=== PATIENT | male | born 1965 | race Caucasian/White ===

== ENCOUNTER → 2018-06-14 | Outpatient (CLI) | payer OTHER ==
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
== END ==
LOC: RADMRIMAIN 07:17
PROVIDERS: ATTEND Internal Medicine
DX: M48.061 Spinal stenosis, lumbar region without neurogenic claudication (principal); M99.74 Connective tissue and disc stenosis of intervertebral foramina of sacral region; M51.27 Other intervertebral disc displacement, lumbosacral region; M51.36 Other intervertebral disc degeneration, lumbar region; M47.817 Spondylosis without myelopathy or radiculopathy, lumbosacral region; M46.96 Unspecified inflammatory spondylopathy, lumbar region
CPT/HCPCS: 72148

== ENCOUNTER → 2018-09-26 | Outpatient (CLI) | payer OTHER ==
[2018-09-26 10:52] LABS: HCT 41.7 % (39.0-53.0); HGB 14.1 gm/dL (13.0-17.5); MCH 29.8 pg (25.0-35.0); MCHC 33.8 g/dL (31.0-37.0); MCV 88.3 fL (80.0-100.0); Mean Platelet Volume 8.9; Platelet Count 261 k/uL (150-450); RBC 4.72 m/uL (4.30-5.90); RDW 14.3 % (11.5-15.5); WBC 7.1 k/uL (3.8-10.6)
[2018-09-26 11:01] LABS: Partial Thromboplastin Time 23.5 sec (22.0-30.0); Prothrombin Time 10.5 sec (9.0-12.0)
[2018-09-26 11:07] LABS: ALT 29 U/L (21-72); AST 27 U/L (17-59); Albumin 4.2 g/dL (3.5-5.0); Alkaline Phosphatase 48 U/L (38-126); Anion Gap 6 mmol/L; Blood Urea Nitrogen 18 mg/dL (9-20); Calcium 9.7 mg/dL (8.4-10.2); Carbon Dioxide 31 mmol/L (22-30); Chloride 101 mmol/L (98-107); Glucose 97 mg/dL (74-99); Potassium 4.8 mmol/L (3.5-5.1); Sodium 138 mmol/L (137-145); Total Bilirubin 0.7 mg/dL (0.2-1.3)
[2018-09-26 11:18] LABS: Appearance,Urine Clear (Clear); Bilirubin,Urine Negative (Negative); Blood,Urine Negative (Negative); Color,Urine Dark Yellow; Glucose,Urine (UA) Negative (Negative); Ketones,Urine Trace (Negative); Leukocyte Esterase,Urine Negative (Negative); Nitrite,Urine Negative (Negative); PH, Urine 6.5 (5.0-8.0); Protein,Urine Negative (Negative); Specific Gravity,Urine 1.024 (1.001-1.035); Urobilinogen,Urine <2.0 mg/dL (<2.0)
== END | disposition home or self-care (01) ==
LOC: LABPAT 09:58
PROVIDERS: ATTEND Orthopaedic Surgery
DX: Z01.818 Encounter for other preprocedural examination (principal); Z01.812 Encounter for preprocedural laboratory examination
CPT/HCPCS: 36415; 80053; 81003; 85027; 85610; 85730; 87070; 93005

== ENCOUNTER 2018-10-07 05:43 | Inpatient (IN) | payer OTHER ==
[~2018-10-07 05:43] MED LIST: HYDROmorphone 0.5 MG/0.5 ML SYRINGE IVP PRN; MORPHINE SULFATE 4 MG/ML SYRINGE IV PRN
[2018-10-07] MEDS ORDERED: ACETAMINOPHEN TAB 500 MG TAB PO ONE (06:00)
[2018-10-07] MEDS ORDERED: ceFAZolin IN SWFI 2 GM/20 ML SYRINGE IVP ONE (06:00)
[2018-10-07] MEDS ORDERED: TRANEXAMIC ACID 1,000 MG in SODIUM CHLORIDE 0.9% 100 ML IVPB ONE ×4 (06:00)
[2018-10-07] MEDS ORDERED: MELOXICAM 7.5 MG TAB PO ONE (06:00)
[2018-10-07] MEDS: LACTATED RINGERS 1,000 ML IV SCH ×2 (06:22→21:34)
[2018-10-07] MEDS ORDERED: ONDANSETRON 4 MG/2 ML VIAL IVP ONE (06:25)
[2018-10-07] MEDS ORDERED: DEXAMETHASONE SOD PHOSPHATE 10 MG/ML 1 ML VIAL IV ONE (06:26)
[2018-10-07] MEDS ORDERED: KETAMINE 10 MG/ML 20 ML VIAL ONE (06:56)
[2018-10-07] MEDS ORDERED: LACTATED RINGERS 1,000 ML BAG IV ONE (06:56)
[2018-10-07] MEDS ORDERED: LIDOCAINE 1% INJ 10MG/ML (20 ML MDV) ONE (06:56)
[2018-10-07] MEDS ORDERED: MIDAZOLAM 2 MG/2 ML VIAL ONE (06:56)
[2018-10-07] MEDS ORDERED: fentaNYL (PF) 50 MCG/ML 2 ML AMP ONE (06:56)
[2018-10-07] MEDS ORDERED: PHENYLEPHRINE-0.9% NACL SYG 1 MG/10 ML SYRINGE ONE (06:56)
[2018-10-07] MEDS ORDERED: HEPARIN SODIUM,PORCINE 10,000 UNIT/ML 1 ML VIAL ONE (06:56)
[2018-10-07] MEDS ORDERED: PROPOFOL 10 MG/ML 20 ML VIAL IV ONE (06:56)
[2018-10-07] MEDS ORDERED: ONDANSETRON 4 MG/2 ML VIAL IVP PRN (06:57)
[2018-10-07] MEDS ORDERED: HYDROcodone/APAP 5-325MG 1 EACH TAB PO PRN (06:57)
[2018-10-07] MEDS ORDERED: HYDROmorphone 0.5 MG/0.5 ML SYRINGE IVP PRN ×2 (06:57)
[2018-10-07] MEDS ORDERED: MAGNESIUM HYDROXIDE 2,400 MG/10 ML CUP PO PRN (06:57)
[2018-10-07] MEDS ORDERED: DIAZEPAM 5 MG TAB PO PRN (06:57)
[2018-10-07] MEDS ORDERED: hydrOXYzine PAMOATE 25 MG CAP PO PRN (06:57)
[2018-10-07] MEDS ORDERED: NALOXONE 0.4 MG/ML 1 ML VIAL IV PRN (06:57)
[2018-10-07] MEDS ORDERED: ROPIVACAINE 246.25 MG, EPINEPHrine 0.5 MG, KETOROLAC 30 MG, cloNIDine HCL/PF 80 MCG, WA... MISCELLANE ONE ×5 (07:00)
[2018-10-07] MEDS ORDERED: ceFAZolin 3,000 MG in SODIUM CHLORIDE 0.9% IRRIGATIO 3,000 ML IRRIGATION ONE (07:01)
[2018-10-07] MEDS ORDERED: LACTATED RINGERS 1,000 ML IV ONE (07:41)
--- NOTE | 2018-10-07 08:55 | FL ---
EXAMINATION TYPE: FL guidance operating room, XR Hip Limited LT DATE OF EXAM: 10/07/2018 CLINICAL HISTORY: Left hip pain TECHNIQUE: Fluoroscopy. COMPARISON: None. FINDINGS: Fluoroscopic guidance was provided during procedure performed by Dr. Peace. A total of 1 minute and 7 seconds of fluoroscopic time was utilized during the procedure and 2 spot images was acquired during left hip replacement. IMPRESSION: As Above.
--- NOTE | 2018-10-07 09:02 | P.OP ---
Date of Procedure: 10/07/18 Preoperative Diagnosis: Severe osteoarthritis left hip Postoperative Diagnosis: Severe osteoarthritis left hip Procedure(s) Performed: Left total hip arthroplasty with a direct anterior approach Implants: Palomino [employer] nephew Polarstem size 8 standard [employer]omino [employer]hew R3, 3 hole acetabular shell, 58 mm [employer]hew reflection 6.5 mm cancellus screw, 25 mm 2 [employer]hew R3, XLPE 20 acetabular liner [employer]om[employer]hew Oxinium femoral head 36 m, +8 All components were press-fit. The articulation is Oxinium on polyethylene. Anesthesia: spinal Surgeon: Yung Peace Insulation Board Back Tender #1: Jeanna Mendez Estimated Blood Loss (ml): 300 (120 mL returned with Cell Saver) Pathology: other (Femoral head) Condition: stable Disposition: PACU Indications for Procedure: After failure of conservative treatment we discussed the surgical and nonsurgical treatment options at length. Patient wishes to proceed with a total hip arthroplasty with a direct anterior approach. Complications specific to this procedure were discussed at length, including but not limited to infection, leg length discrepancy, dislocation, and nerve injury. Patient is aware of all these complications and informed consent was obtained Operative Findings: The operative findings are consistent with severe osteoarthritis of the left hip Description of Procedure: Patient was seen and evaluated in the preoperative area, consent was reviewed, and the surgical site was marked with a skin marker. Patient was then brought to the operating room and given prophylactic antibiotics intravenously. 1 g of Tranexamic acid was also given. A spinal anesthetic was administered by the anesthesia department. The patient was then placed on the Hustle table with the bony prominences well-padded. The hip area was then prepped and draped in usual sterile fashion. A universal timeout was then performed, which confirmed the patient's name, surgical site, ALLERGIES, and procedure being performed. Next the incision site was located at 1 cm distal and 1 cm lateral to the anterior superior iliac spine. The skin and subcutaneous tissues were sharply incised. Incision was carefully dissected down to the fascia overlying the tensor fascia belle muscle. This fascia was then incised in line with the incision. Next, using blunt finger dissection, the tensor fascia belle muscle was dissected off its investing fascia. The muscle was then carefully retracted laterally with a cobra retractor over the lateral neck of the femur. Next, the circumflex vessels were identified and cauterized using the AquaMantis device. The anterior hip capsule was then exposed. The capsule was then opened and an inverted T fashion. Cobra retractors were then placed intracapsularly. The proximal femur was then vis ualized. The femoral neck was then osteotomized appropriate level above the lesser trochanter. Small amount of traction was placed with the Hustle table. A small wedge of bone was then removed from the remaining femoral head. Next, using a corkscrew femoral head was easily removed from the acetabulum. On gross visual inspection, the femoral head had complete loss of articular cartilage in multi ple periarticular osteophytes. Attention was then turned to the acetabulum. the acetabulum was exposed and any remaining labrum was excised. Sequential reaming of the acetabulum was performed using fluoroscopic guidance. When the appropriate size was reached, a trial was then placed. The position and fit of the trial was checked with fluoroscopy. The trial was then removed. Then, using fluoroscopic guidance, the final implant was impacted at 20 of anteversion and 40 of abduction, and fully seated in the acetabulum. 2 screws were then placed in the acetabulum. Again fluoroscopy was used to check position of the screws. Next, the liner was then impacted, with a 20 elevated liner located in the anterior superior quadrant. Component locking was confirmed. Attention was then directed to the femur. With the aid of the Hustle table, the femur was externally rotated to approximately 130, extended, and abducted under the opposite leg. A side hook was then placed under the proximal femur, and the side hook elevator was used to elevate the proximal femur. Retractors were then placed. A capsular release was performed, as well as a release of the conjoined tendon, which afforded excellent visualization of the proximal femur. Next, a box osteotome was used to lateralize the proximal femur. A wood milling machine hand was then used to locate the femoral canal. Sequential broaching was then performed with appropriate size which afforded excellent fixation in the proximal femur. A trial was then placed with appropriate head and neck, and the hip was gently reduced with the aid of the Hustle table. Fluoroscopy was then used to check position of the components, as well as to ensure equal leg lengths. The hip was then gently dislocated and the trials were then removed. Final implants were then impacted and the hip was again reduced. Final fluoroscopic x-rays confirmed that the components were in anatomic position, as well as equal leg lengths. The hip was also taken through range of motion, and found to be stable. The hip was then copiously irrigated with antibiotic solution with pulsatile lavage. The hip was then irrigated with Irrisept solution. The soft tissues were then injected with a ropivacaine solution, which consisted of 246.25 mg of ropivacaine, 0.5 mg of epinephrine, 30 mg of Toradol, 80 g of clonidine, and 48.45 mL of sterile water, for a total of 100 mL of fluid injected. A second dose of 1 g of Tranexamic acid was also given. the fascia was then closed with 2-0 strata fix suture. The subcutaneous tissue was closed with 3-0 Vicryl. The subcuticular tissue was closed with 3-0 strata fix suture. The skin was then closed with Dermabond glue and a sterile silver dressing. The patient was then transferred to the recovery room in stable condi tion. The embalmer assistant ALLAN Cabello was required due to the complexity of surgery, and the need for skilled surgical garment assembler for positioning, draping, exposure, retraction, and closure of the wound.
--- NOTE | 2018-10-07 09:36 | XR ---
EXAMINATION TYPE: XR Hip Limited LT DATE OF EXAM: 10/07/2018 CLINICAL HISTORY: Left hip pain and osteoarthritis. TECHNIQUE: Single AP portable view of left hip is obtained immediately postoperatively. COMPARISON: None. FINDINGS: Metallic hardware from left hip arthroplasty is seen and appears satisfactory in alignment and position. There is evidence of recent surgery with subcutaneous gas noted laterally as well as s oft tissue swelling. IMPRESSION: Metallic hardware from left hip arthroplasty is satisfactory in position.
[2018-10-07 10:08] VITALS: BMI 28.8
[2018-10-07] MEDS: ASPIRIN 325 MG TAB PO SCH ×2 (10:18→21:33)
[2018-10-07] MEDS: MELOXICAM 7.5 MG TAB PO SCH (10:18)
--- NOTE | 2018-10-07 11:51 | P.CONS ---
History of Present Illness - History of Present Illness This is a pleasant 52 years old male with past medical history of hypertension, osteoarthritis. Presents for elective left total hip arthroplasty for failed outpatient therapy. Patient already had the surgery with epidural anesthesia, is fully awake and oriented, denies chest pain or dyspnea or abdominal pain. Hasn't eaten yet. Patient felt some numbness in his feet which is resolved on the right side and still present on the left foot. No weakness. wound site with dressing in place with no surrounding erythema or swelling Vitals stable, labs done a few days ago on 09/26/2018 are reviewed which show an unremarkable CBC, BMP, liver enzymes, and urinalysis Review of Systems CONSTITUTIONAL: No fever, no malaise, no fatigue. HEENT: No recent visual problems or hearing problems. Denied any sore throat. CARDIOVASCULAR: No orthopnea, PND, no palpitations, no syncope. PULMONARY: No shortness of breath, no cough, no hemoptysis. GASTROINTESTINAL: No diarrhea, no nausea, no vomiting, no abdominal pain. Normoactive bowel sounds. NEUROLOGICAL: No headaches, no weakness, no numbness. HEMATOLOGICAL: Denies any bleeding or petechiae. GENITOURINARY: Denies any burning micturition, frequency, or urgency. MUSCULOSKELETAL/RHEUMATOLOGICAL: Denies any joint pain, swelling, or any muscle pain. ENDOCRINE: Denies any polyuria or polydipsia. Past Medical History Past Medical History: Hypertension, Osteoarthritis (OA) Additional Past Medical History / Comment(s): arthritis in hips and back, bone spurs and bulging disks History of Any Multi-Drug Resistant Organisms: None Reported Past Surgical History: Appendectomy, Joint Replacement, Orthopedic Surgery, Tonsillectomy Additional Past Surgical History / Comment(s): arthroscopic donaldo knees, reconstruction rt ankle from injury, donaldo cataracts, TLHA 09/2018 Past Anesthesia/Blood Transfusion Reactions: No Reported Reaction Past Psychological History: No Psychological Hx Reported Smoking Status: Never smoker Past Alcohol Use History: Daily Past Drug Use History: None Reported - Past Family History Mother Family Medical History: No Reported History Medications and Allergies Home Medications Medication Instructions Recorded Confirmed Type Diclofenac Sodium [Voltaren] 75 mg PO BID PRN 09/26/18 10/07/18 History Fluticasone Nasal [place] [Flonase 1 spray EA NOSTRIL DAILY PRN 09/26/18 10/07/18 History Nasal [place]] Lisinopril-Hctz 20-25 mg 1 tab PO DAILY 09/26/18 10/07/18 History [Zestoretic 20-25] Multivitamins, Thera [Multivitamin 1 tab PO DAILY 09/26/18 10/07/18 History (formulary)] [place]-3 Fatty Acids/Fish Oil [Fish 1 cap PO DAILY 09/26/18 10/07/18 History Oil 1,000 mg Softgel] Vit C/E/Zn/Coppr/Lutein/Zeaxan 1 cap PO DAILY 09/26/18 10/07/18 History [Preservision Areds 2 Softgel] Allergies Allergy/AdvReac Type Severity Reaction Status Date / Time Penicillins Allergy Unknown Verified 10/07/18 10:33 Childhood Physical Exam Vitals: Vital Signs Temp Pulse Pulse Resp BP BP Pulse Ox 10/07/18 10:25 97.8 F 75 16 107/70 100 10/07/18 10:15 98.9 F 72 20 141/80 100 10/07/18 09:45 71 16 131/61 100 10/07/18 09:30 68 16 117/63 100 10/07/18 09:15 67 16 106/59 99 10/07/18 09:07 97.5 F L 74 12 109/53 99 10/07/18 06:12 97.3 F L 91 16 136/77 97 Intake and Output 10/06/18 10/07/18 10/07/18 22:59 06:59 14:59 Intake Total 100 4650 Output Total 300 Balance 100 4350 Intake: IV 100 4650 Output: Estimated Blood Loss 300 Other: Weight 101.6 kg GENERAL: The patient is alert and oriented x3, not in any acute distress. Well developed, well nourished. HEENT: Pupils are round and equally reacting to light. EOMI. No scleral icterus. No conjunctival pallor. Normocephalic, atraumatic. No pharyngeal erythema. No thyromegaly. CARDIOVASCULAR: S1 and S2 present. No murmurs, rubs, or gallops. PULMONARY: Chest is clear to auscultation, no wheezing or crackles. ABDOMEN: Soft, nontender, nondistended, normoactive bowel sounds. No palpable organomegaly. -MUSCULOSKELETAL: No joint swelling or deformity. Left hip wound, dressing is in place. Clean and closed. Further examination is deferred to the primary team EXTREMITIES: No cyanosis, clubbing, or pedal edema. NEUROLOGICAL: Gross neurological examination did not reveal any focal deficits. SKIN: No rashes. Assessment and Plan Assessment: Osteoarthritis, status post left total hip arthroplasty Essential hypertension Chronic low back pain, not an active issue Plan: This is a pleasant 52 years old male who presents for left total hip arthroplasty. Pain was controlled. DVT prophylaxis and pain management as per primary team. Labs and medication were reviewed.. Continue same treatment. Continue with symptomatic treatment. Resume home medication. Monitor lytes and vitals. DVT and GI prophylaxis. Further recommendations of the clinical course of the patient Thank you for consulting us, please feel free to contact us for any further question or clarification
[2018-10-07] MEDS: SODIUM CHLORIDE 0.9% 1,000 ML IV SCH ×2 (12:07→21:34)
[2018-10-07] MEDS: HYDROcodone/APAP 5-325MG 1 EACH TAB PO PRN ×2 (12:11→18:20)
[2018-10-07] MEDS: ceFAZolin IN SWFI 2 GM/20 ML SYRINGE IVP SCH ×2 (15:26→23:43)
[2018-10-07] MEDS: HYDROmorphone 1 MG/ML 1 ML SYRINGE IVP PRN (21:34)
[2018-10-07] MEDS: SENNOSIDES-DOCUSATE SODIUM 1 EACH TAB PO SCH (21:34)
[2018-10-08] MEDS: HYDROcodone/APAP 5-325MG 1 EACH TAB PO PRN ×3 (00:25→12:26)
[2018-10-08] MEDS: HYDROmorphone 1 MG/ML 1 ML SYRINGE IVP PRN ×2 (04:57→09:29)
[2018-10-08] MEDS: ASPIRIN 325 MG TAB PO SCH (07:26)
[2018-10-08] MEDS: MELOXICAM 7.5 MG TAB PO SCH (07:26)
[2018-10-08 07:57] LABS: Basophils % (A) 0 %; Eosinophils # (A) 0.1 k/uL (0-0.7); Eosinophils % (A) 1 %; HCT 33.9 % (39.0-53.0); HGB 11.2 gm/dL (13.0-17.5); Lymphocytes # (A) 1.8 k/uL (1.0-4.8); Lymphocytes % (A) 17 %; MCH 30.5 pg (25.0-35.0); MCHC 33.1 g/dL (31.0-37.0); MCV 92.2 fL (80.0-100.0); Mean Platelet Volume 6.5; Monocytes # (A) 0.7 k/uL (0-1.0); Monocytes % (A) 7 %; Neutrophils # (A) 7.6 k/uL (1.3-7.7); Neutrophils % (A) 73 %; Platelet Count 218 k/uL (150-450); RBC 3.68 m/uL (4.30-5.90); RDW 12.6 % (11.5-15.5); WBC 10.4 k/uL (3.8-10.6)
--- NOTE | 2018-10-08 08:37 | P.DS ---
Providers Date of admission: 10/07/18 05:43 Expected date of discharge: 10/08/18 Attending physician: Yung Peace Consults: 10/07/18 06:57 Consult Physician Routine Consulting Provider: Beka Lamas Consult Reason/Comments: medical management Do you want consulting provider notified?: Already Contacted Primary care physician: Norma Mcclainbal - Discharge Diagnosis(es) (1) Osteoarthritis of left hip Current Visit: Yes Status: Acute (2) Status post total hip replacement, left Current Visit: Yes Status: Acute Hospital Course: This is a 52-year-old male with known history of degenerative arthritis of the left hip. The patient presents for evaluation. After discussion and consideration patient elects to proceed with total hip arthroplasty. The patient is seen preoperatively by Dr. Peace and medically cleared for surgery by their primary care physician. Patient is admitted to [facility] on 10/07/2018 for total hip arthroplasty. The procedures performed without complication or sequelae. The patient is doing well postoperatively. Labs and vital signs are stable on day of discharge. On day of discharge patient's hip incision is healing well. There is minimal erythema. There is no drainage noted at this time. There is minimal soft tissue swelling to the hip and thigh. Patient has full foot and ankle motion without difficulty or pain. Calf is soft and nontender to palpation. Neurovascular status to the left lower extremity is intact. Patient is discharged home in good condition. Opioid start talking form is reviewed and signed at patient bedside. Please see med rec for accurate list of home medications. Plan - Discharge Summary Discharge Rx Participant: No New Discharge Prescriptions: New Aspirin 325 mg PO BID #60 tab HYDROcodone/APAP 5-325MG [[place] 5-325] 1 - 2 tab PO Q6HR PRN #56 tab PRN Reason: Pain Sennosides [Senokot] 1 tab PO BID #60 tablet No Action Lisinopril-Hctz 20-25 mg [Zestoretic 20-25] 2 tab PO DAILY Diclofenac Sodium [Voltaren] 75 mg PO BID PRN PRN Reason: Pain Multivitamins, Thera [Multivitamin (formulary)] 1 tab PO DAILY Fluticasone Nasal [place] [Flonase Nasal [place]] 1 spray EA NOSTRIL DAILY PRN PRN Reason: Allergy Symptoms [place]-3 Fatty Acids/Fish Oil [Fish Oil 1,000 mg Softgel] 1 cap PO DAILY Vit C/E/Zn/Coppr/Lutein/Zeaxan [Preservision Areds 2 Softgel] 1 cap PO DAILY Discharge Medication List Diclofenac Sodium [Voltaren] 75 mg PO BID PRN 09/26/18 [History] Fluticasone Nasal [place] [Flonase Nasal [place]] 1 spray EA NOSTRIL DAILY PRN 09/26/18 [History] Lisinopril-Hctz 20-25 mg [Zestoretic 20-25] 2 tab PO DAILY 09/26/18 [History] Multivitamins, Thera [Multivitamin (formulary)] 1 tab PO DAILY 09/26/18 [History] [place]-3 Fatty Acids/Fish Oil [Fish Oil 1,000 mg Softgel] 1 cap PO DAILY 09/26/18 [History] Vit C/E/Zn/Coppr/Lutein/Zeaxan [Preservision Areds 2 Softgel] 1 cap PO DAILY 09/26/18 [History] Aspirin 325 mg PO BID #60 tab 10/08/18 [Rx] HYDROcodone/APAP 5-325MG [[place] 5-325] 1 - 2 tab PO Q6HR PRN #56 tab 10/08/18 [Rx] Sennosides [Senokot] 1 tab PO BID #60 tablet 10/08/18 [Rx] Follow up Appointment(s)/Referral(s): Yung Peace DO [Doctor of Osteopathic Medicine] - 2 Weeks Activity/Diet/Wound Care/Special Instructions: Weightbearing as tolerated with walker. Leave dressing intact. Dressing may be removed by home care nurse or by patient in 10 days. May shower with dressing on. Please follow-up with [facility] in 2 weeks and call with any questions or concerns, . Discharge Disposition: HOME WITH HOME HEALTH SERVICES
[2018-10-08 08:55] VITALS: BP 127/66; PULSE 75; RESP 12; TEMP 97.7
[2018-10-08] MEDS ORDERED: LISINOPRIL-HCTZ 20-25 MG 1 EACH TAB PO SCH (09:00)
[2018-10-08] MEDS: SODIUM CHLORIDE 0.9% 1,000 ML IV SCH (12:19)
[2018-10-08] MEDS: SENNOSIDES-DOCUSATE SODIUM 1 EACH TAB PO SCH (12:26)
--- NOTE | 2018-10-08 12:59 | P.PN ---
Subjective Patient is seen as a follow-up for medical management. At this time the patient denying any chest pain, racing heart, no cough, no shortness breath, no abdominal pain, nausea and vomiting, or diarrhea. He says that he is constipated but is passing gases. He is also walking. Objective - Vital Signs Vital signs: Vital Signs Temp 97.7 F 10/08/18 07:00 Pulse 75 10/08/18 07:00 Resp 12 10/08/18 07:00 BP 127/66 10/08/18 07:00 Pulse Ox 98 10/08/18 07:00 Intake & Output 10/07/18 10/08/18 10/08/18 18:59 06:59 18:59 Intake Total 5060 1120 Output Total 300 Balance 4760 1120 Intake: IV 4860 Sodium Chloride 0.9% 1, 210 000 ml @ 70 mls/hr IV . [id number] GOYO Rx#:[id number] Intake, IV Titration 1120 Amount Sodium Chloride 0.9% 1, 1120 000 ml @ 70 mls/hr IV . [id number] GOYO Rx#:[id number] Oral 200 Output: Estimated Blood Loss 300 Other: # Voids 1 1 2 - Exam On exam, alert and oriented x3. HEENT: Conjunctivae normal. eyes normal. NECK: No JVD. No thyroid enlargement. No LNs CARDIOVASCULAR: S1, S2 muffled. No murmur RESPIRATION: Breath sounds diminished in the bases. No rhonchi or crackles. No bronchial breathing. ABDOMEN: Soft, nontender . No guarding. no masses palpable. No ascites, No hepatosplenomegaly.Bowel sounds heard. LEGS: No edema. no swelling dressing applied to the left hip status post surgery looks clean no signs of infection as of now NERVOUS SYSTEM: Cranial N 2-12 grossly normal. Moves all 4 limbs. No focal deficits. No sensory deficit. No signs of cerebellar dysfucntion. Skin: no ulcer no rash Joints: No active swelling. No inflammation. Lymphatic system. No LN neck axilla or groin. - Labs CBC & Chem 7: 10/08/18 07:18 Labs: Abnormal Lab Results - Last 24 Hours (Table) 10/08/18 Range/Units 07:18 RBC 3.68 L (4.30-5.90) m/uL Hgb 11.2 L (13.0-17.5) gm/dL Hct 33.9 L (39.0-53.0) % Assessment and Plan Assessment: - Osteoarthritis of the left temporal status post left total hip replacement - Hypertension - Chronic low back pain Plan - Patient is doing okay from medical standpoint - Pain management as per orthopedic surgery - Continue rest of the care - DVT prophylaxis as per orthopedic surgery - We'll continue to follow the patient - Patient is stable to be discharged whenever deemed appropriate by orthopedic surgery Time with Patient: Greater than 30
[2018-10-09] MEDS ORDERED: LISINOPRIL-HCTZ 20-25 MG 1 EACH TAB PO SCH (09:00)
== END 2018-10-08 13:37 | disposition home health service (06) | DRG 470 ==
LOC: 2ORMAIN 05:43 → 4SSUR 09:09
PROVIDERS: ADMIT Orthopaedic Surgery; ATTEND Orthopaedic Surgery
PROC: 0SRB06A Replacement of Left Hip Joint with Oxidized Zirconium on Polyethylene Synthetic Substitute, Uncemented, Open Approach (ICD-10-PCS; principal; 2018-10-07 07:00)
DX: M16.12 Unilateral primary osteoarthritis, left hip (principal); I10 Essential (primary) hypertension; M77.9 Enthesopathy, unspecified; K59.00 Constipation, unspecified; Z79.899 Other long term (current) drug therapy; Z98.42 Cataract extraction status, left eye; Z98.41 Cataract extraction status, right eye; Z96.653 Presence of artificial knee joint, bilateral; Z90.49 Acquired absence of other specified parts of digestive tract; Z88.0 Allergy status to penicillin
CPT/HCPCS: 73501; 85025; 86850; 86891; 86900; 86901; 88300

== ENCOUNTER 2019-06-28 12:08 | Emergency (ER) | payer OTHER ==
[2019-06-28] MEDS ORDERED: KETOROLAC 60 MG/2 ML VIAL IM STA (12:38)
--- NOTE | 2019-06-28 12:52 | ED ---
General Adult HPI - General Chief complaint: Back Pain/Injury Stated complaint: Back pain Time Seen by Provider: 06/28/19 12:15 Source: patient, RN notes reviewed, old records reviewed Mode of arrival: ambulatory Limitations: no limitations - History of Present Illness Initial comments: This is a 53-year-old male who presents emergency Department complaining of left-sided back pain it radiates down the back of his leg all the down to his heel. Patient states he had similar pain in the past. Patient states he hasn't had a couple of years. Patient states few months ago he fell and broke some ribs and it was after that that he started having some lower back pain. Patient states it is gotten considerably worse over the last couple of days. Patient denies any area of numbness or weakness. Patient denies any difficulty urinating or urinary incontinence. Patient states sitting makes the pain worse and lying down seems to improve the pain if he has his legs up. - Related Data Home Medications Medication Instructions Recorded Confirmed Diclofenac Sodium [Voltaren] 75 mg PO BID PRN 09/26/18 10/07/18 Fluticasone Nasal [place] [Flonase 1 spray EA NOSTRIL DAILY PRN 09/26/18 10/07/18 Nasal [place]] Lisinopril-Hctz 20-25 mg 2 tab PO DAILY 09/26/18 10/08/18 [Zestoretic 20-25] Multivitamins, Thera [Multivitamin 1 tab PO DAILY 09/26/18 10/07/18 (formulary)] [place]-3 Fatty Acids/Fish Oil [Fish 1 cap PO DAILY 09/26/18 10/07/18 Oil 1,000 mg Softgel] Vit C/E/Zn/Coppr/Lutein/Zeaxan 1 cap PO DAILY 09/26/18 10/07/18 [Preservision Areds 2 Softgel] Previous Rx's Medication Instructions Recorded Aspirin 325 mg PO BID #60 tab 10/08/18 HYDROcodone/APAP 5-325MG [[place] 1 - 2 tab PO Q6HR PRN #56 tab 10/08/18 5-325] Sennosides [Senokot] 1 tab PO BID #60 tablet 10/08/18 predniSONE 40 mg PO DAILY #8 tab 06/28/19 Allergies Allergy/AdvReac Type Severity Reaction Status Date / Time Penicillins Allergy Unknown Verified 06/28/19 12:18 Childhood Review of Systems ROS Statement: Those systems with pertinent positive or pertinent negative responses have been documented in the HPI. ROS Other: All systems not noted in ROS Statement are negative. Past Medical History Past Medical History: Hypertension, Osteoarthritis (OA) Additional Past Medical History / Comment(s): arthritis in hips and back, bone spurs and bulging disks History of Any Multi-Drug Resistant Organisms: None Reported Past Surgical History: Appendectomy, Joint Replacement, Orthopedic Surgery, Tonsillectomy Additional Past Surgical History / Comment(s): arthroscopic donaldo knees, reconstruction rt ankle from injury, donaldo cataracts, TLHA 09/2018 Past Anesthesia/Blood Transfusion Reactions: No Reported Reaction Past Psychological History: No Psychological Hx Reported Smoking Status: Never smoker Past Alcohol Use History: Daily Past Drug Use History: None Reported - Past Family History Mother Family Medical History: No Reported History General Exam - General Exam Comments Initial Comments: GENERAL: Patient is well-developed and well-nourished. Patient is nontoxic and well- hydrated and is in mild distress. ENT: Neck is soft and supple. No significant lymphadenopathy is noted. Oropharynx is clear. Moist mucous membranes. Neck has full range of motion without eliciting any pain. EYES: The sclera were anicteric and conjunctiva were pink and moist. Extraocular movements were intact and pupils were equal round and reactive to light. Eyelids were unremarkable. SKIN: Skin is clear with no lesions or rashes and otherwise unremarkable. NEUROLOGIC: Patient is alert and oriented x3. Cranial nerves II through XII are grossly intact. Motor and sensory are also intact. Normal speech, volume and content. Symmetrical smile. Patient had increased pain when he was lying flat. Patient had negative straight-leg of the right leg but positive on the left at 45 MUSCULOSKELETAL: Normal extremities with adequate strength and full range of motion. No lower extremity swelling or edema. No calf tenderness. LYMPHATICS: No significant lymphadenopathy is noted PSYCHIATRIC: Normal psychiatric evaluation. Limitations: no limitations Course Vital Signs 06/28/19 06/28/19 12:16 13:46 Temperature 97.8 F 97 F L Pulse Rate 104 H 86 Respiratory 18 20 Rate Blood Pressure 161/90 158/78 O2 Sat by Pulse 97 99 Oximetry Medical Decision Making - Medical Decision Making Lumbar spine shows no acute abnormality. Patient received Toradol emergency department was feeling better on reexamination. Disposition Clinical Impression: Sciatica Disposition: HOME SELF-CARE Instructions (If sedation given, give patient instructions): Sciatica (ED) Prescriptions: predniSONE 40 mg PO DAILY #8 tab Is patient prescribed a controlled substance at d/c from ED?: No Referrals: Марина Green MD [Primary Care Provider] - 1-2 days Time of Disposition: 13:29
--- NOTE | 2019-06-28 13:09 | XR ---
EXAMINATION TYPE: XR lumbosacral spine min 4V DATE OF EXAM: 06/28/2019 COMPARISON: NONE HISTORY: 53-year-old male trauma, left lower back pain. TECHNIQUE: 5 views FINDINGS: 1.3 cm stone right side of the abdomen. Undulating mild curvature of the lumbar spine. No pars intera rticularis defect. Moderate degenerative disc disease L4-L5 and L5-S1 with disc height loss and endpl ate spondylosis. Mild to moderate degenerative disc disease throughout the remainder of the lumbar sp ine with mild disc height loss and spondylosis. Hypertrophic facet arthropathy mid to lower lumbar sp ine. There is trace grade 1 retrolisthesis at L3-L4. Vertebral body heights are preserved. IMPRESSION: 1. Moderate degenerative disc disease L4-L5 and L5-S1. Mild to moderate throughout the remainder of t he lumbar spine. 2. Hypertrophic facet arthropathy with trace grade 1 retrolisthesis at L3-L4. 3. No vertebral compression collapse. 4. A 1.3 cm stone in the right side of the abdomen could be a renal calculus or gallstone.
[2019-06-28 13:46] VITALS: BP 158/78; PULSE 86; RESP 20; TEMP 97
== END 2019-06-28 13:46 | disposition home or self-care (01) ==
LOC: EC 12:08
DX: M54.42 Lumbago with sciatica, left side (principal); Z88.0 Allergy status to penicillin; I10 Essential (primary) hypertension; M16.0 Bilateral primary osteoarthritis of hip; M47.9 Spondylosis, unspecified; Z79.1 Long term (current) use of non-steroidal anti-inflammatories (NSAID); Z79.899 Other long term (current) drug therapy; Z96.642 Presence of left artificial hip joint; Z87.81 Personal history of (healed) traumatic fracture; Z91.81 History of falling
CPT/HCPCS: 72110; 99284; 96372; J1885

== ENCOUNTER → 2019-07-10 | Outpatient (CLI) | payer OTHER ==
--- NOTE | 2019-07-10 09:14 | US ---
EXAMINATION TYPE: US abdomen complete DATE OF EXAM: 07/10/2019 COMPARISON: X-ray dated 06/28/2019 CLINICAL HISTORY: R10.11 Abd pain. RUQ pain, 1.3cm stone visualized on recent x-ray noted as possible renal calculus or gallstone EXAM MEASUREMENTS: Liver Length: 16.2 cm Gallbladder Wall: 0.3 cm CBD: 0.3 cm Spleen: 9.6 cm Right Kidney: 11.7 x 5.9 x 5.0 cm Left Kidney: 12.4 x 6.1 x 5.2 cm Technical limitations due to large amount of overlying bowel content Pancreas: Obscured by bowel gas Liver: only seen intercostally, visualized portions appear wnl Gallbladder: no evidence of stones as visualized Evidence for sonographic Weems's sign: no CBD: appears wnl Spleen: appears wnl Right Kidney: no evidence of hydronephrosis Left Kidney: no evidence of hydronephrosis Upper IVC: wnl Abd Aorta: wnl The liver is homogenous. The intrahepatic portion of the IVC and proximal abdominal aorta are within normal limits. There is no evidence of cholelithiasis. Common bile duct is unremarkable. The visu alized portions of the pancreas are homogenous. The spleen is unremarkable. Kidneys are symmetric a nd free of hydronephrosis. No renal lesions are seen. IMPRESSION: 1. No sonographic evidence of cholelithiasis nor acute cholecystitis. Obscuration of the pancreas by overlying bowel gas and suboptimal visualization of the liver. 2. The 1.3 cm calculus seen on the x-ray 06/28/2019 is neither seen within the gallbladder or right kid venkat. This may have been within bowel on the prior exam or could relate to a calcified mesenteric stru cture such as a lymph node. Repeat x-ray could evaluate for persistence. If present on the subsequent x-ray CT could be performed of the abdomen for further anatomic delineation.
== END | disposition home or self-care (01) ==
LOC: RADUSWWP 07:44
PROVIDERS: ATTEND Internal Medicine
DX: R10.11 Right upper quadrant pain (principal); Z88.0 Allergy status to penicillin
CPT/HCPCS: 76700

== ENCOUNTER 2019-08-05 16:24 | Emergency (ER) | payer OTHER ==
[2019-08-05 16:33] VITALS: BP 168/92; PULSE 94; RESP 16; TEMP 97.8
[2019-08-05] MEDS ORDERED: HYDROmorphone 1 MG/ML 1 ML SYRINGE IM STA (17:14)
[2019-08-05] MEDS ORDERED: ACET/COD 300 MG/30 MG STARTER PACK 6 TAB BTL PO STA (17:14)
--- NOTE | 2019-08-05 17:16 | ED ---
Back Pain HPI - General Chief Complaint: Back Pain/Injury Stated Complaint: sciatic nerve/back pain Time Seen by Provider: 08/05/19 17:02 Source: patient, RN notes reviewed Limitations: no limitations - History of Present Illness Initial Comments: This a 53-year-old male presents emergency Department chief complaint low back pain. Patient states that he history of back problems states that he went to install a microwave when he states he leaned forward with a follow-up appointment physician is low back states it but has not been has pain rating down his left leg. He states he had an injury similar to this a few weeks ago. Patient had a localized injection by neurology. Patient denies any alcohol or bladder incontinence or retention of abdominal pain. He has not taken anything for pain at this time. - Related Data Home Medications Medication Instructions Recorded Confirmed Diclofenac Sodium [Voltaren] 75 mg PO BID PRN 09/26/18 10/07/18 Fluticasone Nasal [place] [Flonase 1 spray EA NOSTRIL DAILY PRN 09/26/18 10/07/18 Nasal [place]] Lisinopril-Hctz 20-25 mg 2 tab PO DAILY 09/26/18 10/08/18 [Zestoretic 20-25] Multivitamins, Thera [Multivitamin 1 tab PO DAILY 09/26/18 10/07/18 (formulary)] [place]-3 Fatty Acids/Fish Oil [Fish 1 cap PO DAILY 09/26/18 10/07/18 Oil 1,000 mg Softgel] Vit C/E/Zn/Coppr/Lutein/Zeaxan 1 cap PO DAILY 09/26/18 10/07/18 [Preservision Areds 2 Softgel] Previous Rx's Medication Instructions Recorded Aspirin 325 mg PO BID #60 tab 10/08/18 HYDROcodone/APAP 5-325MG [[place] 1 - 2 tab PO Q6HR PRN #56 tab 10/08/18 5-325] Sennosides [Senokot] 1 tab PO BID #60 tablet 10/08/18 predniSONE [Deltasone] 40 mg PO DAILY #8 tab 06/28/19 Cyclobenzaprine [Flexeril] 10 mg PO TID PRN #15 tab 08/05/19 Ibuprofen [Motrin] 800 mg PO Q6HR #30 tab 08/05/19 Allergies Allergy/AdvReac Type Severity Reaction Status Date / Time Penicillins Allergy Unknown Verified 08/05/19 16:33 Childhood Review of Systems ROS Statement: Those systems with pertinent positive or pertinent negative responses have been documented in the HPI. ROS Other: All systems not noted in ROS Statement are negative. Past Medical History Past Medical History: Hypertension, Osteoarthritis (OA) Additional Past Medical History / Comment(s): arthritis in hips and back, bone spurs and bulging disks History of Any Multi-Drug Resistant Organisms: None Reported Past Surgical History: Appendectomy, Joint Replacement, Orthopedic Surgery, Tonsillectomy Additional Past Surgical History / Comment(s): arthroscopic donaldo knees, reconstruction rt ankle from injury, donaldo cataracts, TLHA 09/2018 Past Anesthesia/Blood Transfusion Reactions: No Reported Reaction Past Psychological History: No Psychological Hx Reported Smoking Status: Former smoker Past Alcohol Use History: Daily Past Drug Use History: None Reported - Past Family History Mother Family Medical History: No Reported History General Exam Limitations: no limitations General appearance: alert, in no apparent distress Head exam: Present: atraumatic, normocephalic, normal inspection Eye exam: Present: normal appearance, PERRL, EOMI. Absent: scleral icterus, conjunctival injection, periorbital swelling ENT exam: Present: normal exam, mucous membranes moist Neck exam: Present: full ROM Respiratory exam: Present: normal lung sounds bilaterally. Absent: respiratory distress, wheezes, rales, rhonchi, stridor Cardiovascular Exam: Present: regular rate, normal rhythm, normal heart sounds. Absent: systolic murmur, diastolic murmur, rubs, gallop, clicks GI/Abdominal exam: Present: soft, normal bowel sounds. Absent: distended, tenderness, guarding, rebound, rigid Extremities exam: Present: other (Lower extremity strength equal bilaterally, neurovascular intact, equal color equal warmth) Back exam: Present: full ROM (Moderate discomfort), tenderness, muscle spasm, paraspinal tenderness. Absent: vertebral tenderness Neurological exam: Present: alert, oriented X3, CN II-XII intact, reflexes normal. Absent: motor sensory deficit Course Vital Signs 08/05/19 16:26 Temperature 97.8 F Pulse Rate 94 Respiratory 16 Rate Blood Pressure 168/92 O2 Sat by Pulse 97 Oximetry Medical Decision Making - Medical Decision Making Patient has a lumbar strain with radicular symptoms. Patient is neurovascularly intact, no red flag symptoms. Patient will write pain medication and discharged. Disposition Clinical Impression: Strain of lumbar region, Sciatica Disposition: HOME SELF-CARE Condition: Stable Instructions (If sedation given, give patient instructions): Acute Low Back Pain (ED) Additional Instructions: Please return to the Emergency Department if symptoms worsen or any other concerns. Prescriptions: Cyclobenzaprine [Flexeril] 10 mg PO TID PRN #15 tab PRN Reason: Muscle Spasm Ibuprofen [Motrin] 800 mg PO Q6HR #30 tab Is patient prescribed a controlled substance at d/c from ED?: No Referrals: Марина Green MD [Primary Care Provider] - 1-2 days Time of Disposition: 17:16
== END 2019-08-05 17:36 | disposition home or self-care (01) ==
LOC: EC 16:24
DX: S39.012A Strain of muscle, fascia and tendon of lower back, initial encounter (principal); M54.40 Lumbago with sciatica, unspecified side; M16.0 Bilateral primary osteoarthritis of hip; M46.90 Unspecified inflammatory spondylopathy, site unspecified; I10 Essential (primary) hypertension; Z87.891 Personal history of nicotine dependence; Z88.0 Allergy status to penicillin; Z79.1 Long term (current) use of non-steroidal anti-inflammatories (NSAID); Z79.899 Other long term (current) drug therapy; Z96.642 Presence of left artificial hip joint; Z96.661 Presence of right artificial ankle joint; Z87.828 Personal history of other (healed) physical injury and trauma; X50.1XXA Overexertion from prolonged static or awkward postures, initial encounter; Y93.89 Activity, other specified
CPT/HCPCS: 99283; 96372; J1170

== ENCOUNTER → 2021-04-11 | Outpatient (CLI) | payer OTHER ==
[2021-04-11 13:37] LABS: Partial Thromboplastin Time 22.9 sec (22.0-30.0); Prothrombin Time 10.6 sec (9.0-12.0)
[2021-04-11 14:47] LABS: Appearance,Urine Clear (Clear); Bilirubin,Urine Negative (Negative); Blood,Urine Negative (Negative); Color,Urine Yellow; Glucose,Urine (UA) Negative (Negative); Ketones,Urine Negative (Negative); Leukocyte Esterase,Urine Negative (Negative); Nitrite,Urine Negative (Negative); PH, Urine 5.5 (5.0-8.0); Protein,Urine Negative (Negative); Specific Gravity,Urine 1.024 (1.001-1.035); Urobilinogen,Urine <2.0 mg/dL (<2.0)
--- NOTE | 2021-04-11 14:56 | XR ---
EXAMINATION TYPE: XR chest 2V DATE OF EXAM: 04/11/2021 COMPARISON: None HISTORY: M43.16,M47.26,M51.86 TECHNIQUE: Frontal and lateral views of the chest are obtained on 3 images. FINDINGS: There is no focal air space opacity, pleural effusion, or pneumothorax seen. The cardiac silhouette size is within normal limits. There is eventration of the right hemidiaphragm. The osseou s structures are intact HEALED posterior right rib fractures are noted, correlate for appropriate his tory. IMPRESSION: No acute cardiopulmonary process. Old rib fractures.
[2021-04-11 19:14] LABS: Basophils # (A) 0.05 X 10*3/uL (0.00-0.10); Basophils % (A) 0.4 %; Eosinophils # (A) 0.16 X 10*3/uL (0.04-0.35); Eosinophils % (A) 1.3 %; HCT 41.7 % (39.6-50.0); HGB 14.6 g/dL (13.0-17.0); Lymphocytes # (A) 1.61 X 10*3/uL (0.90-5.00); Lymphocytes % (A) 12.9 %; MCH 32.9 pg (27.0-32.0); MCV 93.9 fL (80.0-97.0); Mean Platelet Volume 9.9 fL (9.5-12.2); Monocytes # (A) 1.06 X 10*3/uL (0.20-1.00); Monocytes % (A) 8.5 %; Neutrophils # (A) 9.58 X 10*3/uL (1.80-7.70); Neutrophils % (A) 76.4 %; Platelet Count 289 X 10*3/uL (140-440); RBC 4.44 X 10*6/uL (4.40-5.60); RDW 12.2 % (11.5-14.5); WBC 12.52 X 10*3/uL (4.50-10.00)
[2021-04-11 22:33] LABS: African American GFR (CKD) 107.8 (60.0-200.0); Albumin 4.7 g/dL (3.8-4.9); Albumin/Globulin Ratio 2.15 (1.60-3.17); Anion Gap 16.8 mmol/L (4.00-12.00); BUN/Creat Ratio 21.98 Ratio (12.00-20.00); Blood Urea Nitrogen 20.4 mg/dL (9.0-27.0); Calcium 9.5 mg/dL (8.7-10.3); Carbon Dioxide 20.5 mmol/L (21.6-31.8); Globulin 2.2 g/dL (1.6-3.3); Potassium 4.4 mmol/L (3.5-5.5); Total Bilirubin 0.4 mg/dL (0.30-1.20); Total Protein 6.8 g/dL (6.2-8.2)
== END | disposition home or self-care (01) ==
LOC: LABWHC1 12:02
PROVIDERS: ATTEND Neurological Surgery
DX: M43.16 Spondylolisthesis, lumbar region (principal); M47.26 Other spondylosis with radiculopathy, lumbar region; M51.86 Other intervertebral disc disorders, lumbar region
CPT/HCPCS: 36415; 71046; 80053; 81003; 85025; 85610; 85730; 87070; 93005

== ENCOUNTER 2022-01-25 12:08 | Emergency (ER) | payer OTHER ==
[2022-01-25 12:59] VITALS: BP 155/94; PULSE 83; RESP 16; TEMP 97.7
[2022-01-25] MEDS ORDERED: MORPHINE SULFATE 4 MG/ML SYRINGE IV STA (14:46)
--- NOTE | 2022-01-25 14:46 | ED ---
Lower Extremity Injury HPI - General Chief Complaint: Extremity Injury, Lower Stated Complaint: back & hip pain Time Seen by Provider: 01/25/22 14:17 Source: patient, RN notes reviewed, old records reviewed Mode of arrival: ambulatory Limitations: no limitations - History of Present Illness Initial Comments: This is a well-appearing 56-year-old male who presents ambulatory with complaints of chronic right hip pain. Patient states that he did have back surgery 6 months ago and a left total hip with Dr. Peace. Patient states that he stepped off his deck and tweaked his right hip recently and has had pain since. He did go to a chiropractor on December 04 and had an x-ray done and was advised to follow up with his doctor for possible osteonecrosis of the right hip. Patient states that the chiropractor told him that there may be some arterial occlusion within the right hip at that time. Patient's leg is pink warm and dry. He denies any fevers. MD Complaint: hip injury (right) -: month(s) Severity scale (1-10): 6 Worsens With: movement - Related Data Home Medications Medication Instructions Recorded Confirmed Diclofenac Sodium [Voltaren] 75 mg PO DAILY 09/26/18 01/25/22 Lisinopril-Hctz 20-25 mg 1 tab PO BID 09/26/18 01/25/22 [Zestoretic 20-25] Allergies Allergy/AdvReac Type Severity Reaction Status Date / Time Penicillins Allergy Unknown Verified 01/25/22 16:00 Childhood Review of Systems ROS Statement: Those systems with pertinent positive or pertinent negative responses have been documented in the HPI. ROS Other: All systems not noted in ROS Statement are negative. Past Medical History Past Medical History: Hypertension, Osteoarthritis (OA) Additional Past Medical History / Comment(s): arthritis in hips and back, bone spurs and bulging disks History of Any Multi-Drug Resistant Organisms: None Reported Past Surgical History: Appendectomy, Joint Replacement, Orthopedic Surgery, Tonsillectomy Additional Past Surgical History / Comment(s): arthroscopic donaldo knees, reconstruction rt ankle from injury, donaldo cataracts, TLHA 09/2018 Past Anesthesia/Blood Transfusion Reactions: No Reported Reaction Past Psychological History: No Psychological Hx Reported Past Alcohol Use History: Daily Past Drug Use History: None Reported - Past Family History Mother Family Medical History: No Reported History General Exam Limitations: no limitations General appearance: alert, in no apparent distress Head exam: Present: atraumatic, normocephalic Eye exam: Absent: scleral icterus, conjunctival injection Respiratory exam: Absent: respiratory distress, accessory muscle use Cardiovascular Exam: Present: regular rate Extremities exam: Present: normal capillary refill. Absent: pedal edema, joint swelling, calf tenderness Right Hip exam: Present: tenderness, pelvic stability. Absent: deformity Neurovascular tendon exam: Present: no vascular compromise. Absent: abnormal cap refill, extremity cold to touch, pallor, foot drop Gait: observed and normal Back exam: Present: normal inspection, other (Surgical scars lumbar sacral spine) Neurological exam: Present: alert, oriented X3, normal gait Psychiatric exam: Present: normal affect, normal mood Skin exam: Present: warm, dry, normal color. Absent: cyanosis, diaphoretic Course Vital Signs 01/25/22 12:53 Temperature 97.7 F Pulse Rate 83 Respiratory 16 Rate Blood Pressure 155/94 O2 Sat by Pulse 99 Oximetry Medical Decision Making - Medical Decision Making CT of the right hip with contrast shows severe osteoarthritic changes with no evidence of subchondral collapse to suggest osteonecrosis. There are postsurgical changes of the lumbar spine. Patient was given morphine for pain with relief. On physical exam the patient's leg is pink warm and dry. There is no evidence of foot drop. He is ambulatory with a steady gait. There are no red flags, last surgery was 6 months ago. No fevers. No bowel or bladder incontinence. Patient states he was directed to have an MRI by his neurologist which he states has been having a problem getting related to insurance coverage. He states that his neurologist did recommend following up with orthopedics for a joint injection. I did direct patient to follow up with Dr. Staton regarding osteoarthritis of the hip and for continuation of care. I also encouraged him to return to physical therapy. I recommended him continue taking his Voltaren as previously prescribed. Case discussed with Dr. Barroso. - Lab Data Result diagrams: 01/25/22 15:14 01/25/22 15:14 Lab Results 01/25/22 01/25/22 Range/Units 15:14 15:14 WBC 9.0 (3.8-10.6) k/uL RBC 4.42 (4.30-5.90) m/uL Hgb 14.1 (13.0-17.5) gm/dL Hct 41.4 (39.0-53.0) % MCV 93.7 (80.0-100.0) fL MCH 31.9 (25.0-35.0) pg MCHC 34.1 (31.0-37.0) g/dL RDW 11.9 (11.5-15.5) % Plt Count 297 (150-450) k/uL MPV 7.1 Neutrophils % 68 % Lymphocytes % 22 % Monocytes % 5 % Eosinophils % 3 % Basophils % 0 % Neutrophils # 6.1 (1.3-7.7) k/uL Lymphocytes # 2.0 (1.0-4.8) k/uL Monocytes # 0.5 (0-1.0) k/uL Eosinophils # 0.2 (0-0.7) k/uL Basophils # 0.0 (0-0.2) k/uL Sodium 133 L (137-145) mmol/L Potassium 3.6 (3.5-5.1) mmol/L Chloride 99 (98-107) mmol/L Carbon Dioxide 25 (22-30) mmol/L Anion Gap 9 mmol/L BUN 13 (9-20) mg/dL Creatinine 0.65 L (0.66-1.25) mg/dL Est GFR (CKD-EPI)AfAm >90 (>60 ml/min/1.73 sqM) Est GFR (CKD-EPI)NonAf >90 (>60 ml/min/1.73 sqM) Glucose 95 (74-99) mg/dL Calcium 9.1 (8.4-10.2) mg/dL Disposition Clinical Impression: Hip pain, Osteoarthritis of right hip Disposition: HOME SELF-CARE Condition: Good Instructions (If sedation given, give patient instructions): Osteoarthritis (ED), Hip Pain (ED) Additional Instructions: Continue taking Voltaren for pain. Follow-up with your orthopedic doctor for continuation of care. Is patient prescribed a controlled substance at d/c from ED?: No Referrals: None,Stated [Primary Care Provider] - 1-2 days Yung Peace DO [Doctor of Osteopathic Medicine] - 1-2 days Time of Disposition: 17:14
--- NOTE | 2022-01-25 16:29 | CT ---
EXAMINATION TYPE: CT hip RT w con CT DLP: 1085.6 mGycm, Automated exposure control for dose reduction was used. DATE OF EXAM: 01/25/2022 4:08 PM COMPARISON: None. CLINICAL INDICATION:Male, 56 years old with history of pain r/o osteonecrosis; PHH, Right hip pain, n o injury. TECHNIQUE: Axial images were obtained of the right hip after the uneventful administration 100 cc of Isovue-300 intravenously. Additional coronal and sagittal reformatted images and soft tissue and bon e window were obtained for review. 3-D reconstruction was created on a separate workstation. FINDINGS: There is no evidence of fracture, subluxation, or dislocation. Severe osteoarthritic parra es of the right hip with joint space narrowing, sclerosis, osteophytosis, and subchondral cystic form ation. No evidence of subchondral collapse to suggest osteonecrosis. Surrounding heterotopic ossifica tion noted. No significant soft tissue swelling or joint effusion is identified. No focal muscular at rophy or edema is identified. No radiopaque foreign body identified. Postsurgical changes of the lumb ar spine. IMPRESSION: Severe osteoarthritic changes of the right hip. No evidence of subchondral collapse to suggest osteon ecrosis.
[2022-01-25 16:51] LABS: Basophils % (A) 0 %; Eosinophils # (A) 0.2 k/uL (0-0.7); Eosinophils % (A) 3 %; HCT 41.4 % (39.0-53.0); HGB 14.1 gm/dL (13.0-17.5); Lymphocytes % (A) 22 %; MCH 31.9 pg (25.0-35.0); MCHC 34.1 g/dL (31.0-37.0); MCV 93.7 fL (80.0-100.0); Mean Platelet Volume 7.1; Monocytes # (A) 0.5 k/uL (0-1.0); Monocytes % (A) 5 %; Neutrophils # (A) 6.1 k/uL (1.3-7.7); Neutrophils % (A) 68 %; Platelet Count 297 k/uL (150-450); RBC 4.42 m/uL (4.30-5.90); RDW 11.9 % (11.5-15.5)
[2022-01-25 16:59] LABS: African American GFR (CKD) >90 (>60 ml/min/1.73 sqM); Anion Gap 9 mmol/L; Blood Urea Nitrogen 13 mg/dL (9-20); Calcium 9.1 mg/dL (8.4-10.2); Carbon Dioxide 25 mmol/L (22-30); Chloride 99 mmol/L (98-107); Glucose 95 mg/dL (74-99); Non-African American GFR(CKD) >90 (>60 ml/min/1.73 sqM); Potassium 3.6 mmol/L (3.5-5.1); Sodium 133 mmol/L (137-145)
== END 2022-01-25 17:21 | disposition home or self-care (01) ==
LOC: EC 12:08
DX: M16.11 Unilateral primary osteoarthritis, right hip (principal); I10 Essential (primary) hypertension; Z88.0 Allergy status to penicillin; Z79.1 Long term (current) use of non-steroidal anti-inflammatories (NSAID); Z79.899 Other long term (current) drug therapy
CPT/HCPCS: 36415; 80048; 85025; 73701; 99284; 96374; J2270; Q9967

== ENCOUNTER 2023-02-04 12:49 | Emergency (ER) | payer OTHER ==
--- NOTE | 2023-02-04 13:25 | ED ---
General Adult HPI - General Chief complaint: Neuro Symptoms/Deficit Stated complaint: neuro issues Time Seen by Provider: 02/04/23 13:08 Source: patient, RN notes reviewed Mode of arrival: ambulatory Limitations: no limitations - History of Present Illness Initial comments: This is a pleasant individual presents with multiple complaints. Patient states he has been having problems with his low back. There is a had back surgery by Dr. Torrez. Patient states that since then he has had problems with right-sided radiculopathy seems to be losing some muscle tone in his right thigh area. However is able to ambulate. No symptoms of saddle anesthesia. States he occasionally gets constipation. Has been using vaulting on for pain. Patient states he went to the chiropractor last Saturday and had his neck and mid back manipulated. Patient states since then he's had some intermittent pains in his left trapezius area and intermittent shooting pains down his right arm. Denying any chest pain or shortness of breath. No fever or chills. No trauma. Patient states it feels like he's having abdominal discomfort. Mostly relating this to constipation. No headache, no fever or chills, no changes in vision or hearing, no sore throat or difficulty with speech, no neck pain, no chest pain or shortness of breath, no abdominal pain, no nausea or vomiting, no changes in urination or bowel movements, no numbness or tingling, no extremity pain, no skin rashes or lesions. Past medical, surgical, social, and family history reviewed. - Related Data Home Medications Medication Instructions Recorded Confirmed Diclofenac Sodium [Voltaren] 75 mg PO DAILY 09/26/18 01/25/22 Lisinopril-Hctz 20-25 mg 1 tab PO BID 09/26/18 01/25/22 [Zestoretic 20-25] Previous Rx's Medication Instructions Recorded methylPREDNISolone Dose Pack 4 mg PO DIRECTED #21 tab 02/04/23 [Medrol Dose Pack] Allergies Allergy/AdvReac Type Severity Reaction Status Date / Time Penicillins Allergy Unknown Verified 02/04/23 13:00 Childhood Review of Systems ROS Statement: Those systems with pertinent positive or pertinent negative responses have been documented in the HPI. ROS Other: All systems not noted in ROS Statement are negative. Past Medical History Past Medical History: Hypertension, Osteoarthritis (OA) Additional Past Medical History / Comment(s): arthritis in hips and back, bone spurs and bulging disks History of Any Multi-Drug Resistant Organisms: None Reported Past Surgical History: Appendectomy, Joint Replacement, Orthopedic Surgery, Tonsillectomy Additional Past Surgical History / Comment(s): arthroscopic donaldo knees, reconstruction rt ankle from injury, donaldo cataracts, TLHA 09/2018 Past Anesthesia/Blood Transfusion Reactions: No Reported Reaction Past Psychological History: No Psychological Hx Reported Smoking Status: Never smoker Past Alcohol Use History: Daily Past Drug Use History: None Reported - Past Family History Mother Family Medical History: No Reported History General Exam - General Exam Comments Initial Comments: Patient does not appear to be ill or toxic. Cranial nerves II through XII intact. Alert and oriented 4. Limitations: no limitations General appearance: alert, in no apparent distress Head exam: Present: atraumatic, normocephalic, normal inspection Eye exam: Present: normal appearance, PERRL, EOMI. Absent: scleral icterus, conjunctival injection, periorbital swelling ENT exam: Present: normal exam, mucous membranes moist Neck exam: Present: normal inspection, tenderness (Some mild tenderness area and left trapezius. No break in skin integrity. No erythema.), full ROM, other. Absent: meningismus, lymphadenopathy Respiratory exam: Present: normal lung sounds bilaterally. Absent: respiratory distress, wheezes, rales, rhonchi, stridor Cardiovascular Exam: Present: regular rate, normal rhythm, normal heart sounds. Absent: systolic murmur, diastolic murmur, rubs, gallop, clicks GI/Abdominal exam: Present: soft, normal bowel sounds. Absent: distended, tenderness, guarding, rebound, rigid Extremities exam: Present: normal inspection, full ROM, normal capillary refill. Absent: tenderness, pedal edema, joint swelling, calf tenderness Back exam: Present: normal inspection, full ROM, tenderness (Mild bilateral paraspinal tenderness. No midline tenderness.), paraspinal tenderness, other (Straight leg raise negative.). Absent: CVA tenderness (R), CVA tenderness (L), muscle spasm, vertebral tenderness, rash noted Neurological exam: Present: alert, oriented X3, CN II-XII intact, normal gait, motor sensory deficit, reflexes normal, other (Great toe extensor strength +5 out of 5, DTRs are intact. Sensation intact. No evidence of cauda equina syndrome.) Psychiatric exam: Present: normal affect, normal mood Skin exam: Present: warm, dry, intact, normal color. Absent: rash Course Vital Signs 02/04/23 02/04/23 12:57 14:00 Temperature 98.3 F Pulse Rate 94 80 Respiratory 18 20 Rate Blood Pressure 157/89 161/91 O2 Sat by Pulse 98 98 Oximetry EKG Findings - EKG Comments: EKG Findings:: EKG independently interpreted by me at 1350 reveals sinus rhythm with rate of 73, normal intervals, no acute ST or T-wave changes. Normal axis. Medical Decision Making - Medical Decision Making Was pt. sent in by a medical professional or institution? @ -[by , PA, [employer], urgent care, hospital, or prison] Did you speak to anyone other than the patient for history? @Spouse Did you review nursing and triage notes? @ -[agree or disagree, why?] Were old charts reviewed? @ -[outside hosp., previous admissions, EMS record, old EKG, old radiological studies, urgent care reports/EKGs, prison records?] Differential Diagnosis? @ Differential diagnosis includes but not limited to: Multiple issues. Likely related to cervical radiculopathy and lumbar radiculopathy. Does not appear to be consistent with infectious process. Does not appear to be consistent with cauda equina syndrome or other significant red flags. Patient states he feels like he is getting some abdominal discomfort which she is related to constipation. This is likely related to constipation. However this is ongoing. Patient's gait is normal. I do not believe this is related to cauda equina syndrome. Patient may need an MRI given some of his symptoms. Will need to have him follow-up with the back specialist. We'll obtain imaging of the abdomen performed a KUB. Also image the neck with plain film x-ray since he just had manipulation last Saturday. This is not consistent with vascular H use such as vertebral artery injury. Patient does not appear to be ill or toxic. EKG interpreted by me (3pts min.)? @ -[none] X-rays interpreted by me (1pt min.)? @ Plain film x-rays independently interpreted by me show no evidence of acute pathology. Some degenerative changes. Reviewed radiology interpretation CT interpreted by me (1pt min.)? @none U/S interpreted by me (1pt. min.)? @ -[none] What testing was considered but not performed? (CT, X-rays, U/S, labs)? Why? @ [CT, X-rays, U/S, labs? Why?] What meds were considered but not given? Why? @ -[none] Did you discuss the management of the patient with other professionals? @ -The case was discussed in detail with ED attending physician. Presentation, findings, treatment plan discussed in detail. Did you reconcile home meds? @ -[none] Was smoking cessation discussed for >3mins.? @ -[none] Was critical care preformed (if so, how long)? @ -[none] Were there social determinants of health that impacted care today? How? (Homelessness, low income, unemployed, alcoholism, drug addiction, transportation, low edu. Level, literacy, decrease access to med. care, residential, rehab)? @ -None noted Was there de-escalation of care discussed even if they declined? (Discuss DNR or withdrawal of care, Hospice)? @ -[Discuss DNR or withdrawal of care, Hospice?] What co-morbidities impacted this encounter? (DM, HTN, Smoking, COPD, CAD, Cance r, CVA, Hep., AIDS, mental health diagnosis, sleep apnea, morbid obesity)? @ -Chronic back pain with chronic radiculopathy Was patient admitted / discharged? @ -Stable, discharged Undiagnosed new problem with uncertain prognosis? @ -Acute exacerbation of chronic diagnosis Drug Therapy requiring intensive monitoring for toxicity (Heparin, Nitro, Insulin, Cardizem)? @ -[none] Were any procedures done? @ -[none] Diagnosis/symptom? @ -Chronic lumbar radiculopathy with chronic back pain. Cervical strain with cervical radiculopathy. Acute, or Chronic, or Acute on Chronic? @ -Acute/chronic Uncomplicated (without systemic symptoms) or Complicated (systemic symptoms)? @ -No systemic symptoms Side effects of treatment? @ -[none] Exacerbation, Progression, or Severe Exacerbation] @ -Exacerbation Poses a threat to life or bodily function? @ -[no] Patient has had multiple evaluations with multiple neurosurgeons. Has been going to several out-of-town in the [place] area. Has previously seen Dr. Satnana here in town. Previous intervention by Dr. Torrez. We'll have the patient follow-up with his neurosurgeon in [place]. I also gave him the name of [facility] at [facility]. We'll try Medrol Dosepak to see if we can settle down some of the radicular symptoms. Patient does not appear to be systemically ill. This is unlikely depose threat to life or bodily function. Patient was told to return to the ER for any signs or symptoms worsen. Told to return immediately if any other problems arise. All questions answered. Treatment plan discussed. Patient in agreement Every effort has been made to ensure accuracy of this dictation. However, due to the limitations of electronic medical records and dictation devices, errors in charting still occur. - Lab Data Result diagrams: 02/04/23 13:52 02/04/23 13:52 Lab Results 02/04/23 02/04/23 02/04/23 Range/Units 13:52 13:52 13:52 WBC 8.8 (3.8-10.6) k/uL RBC 4.16 L (4.30-5.90) m/uL Hgb 13.9 (13.0-17.5) gm/dL Hct 38.7 L (39.0-53.0) % MCV 93.1 (80.0-100.0) fL MCH 33.5 (25.0-35.0) pg MCHC 35.9 (31.0-37.0) g/dL RDW 11.9 (11.5-15.5) % Plt Count 262 (150-450) k/uL MPV 7.3 Neutrophils % 73 % Lymphocytes % 17 % Monocytes % 7 % Eosinophils % 1 % Basophils % 1 % Neutrophils # 6.4 (1.3-7.7) k/uL Lymphocytes # 1.5 (1.0-4.8) k/uL Monocytes # 0.6 (0-1.0) k/uL Eosinophils # 0.1 (0-0.7) k/uL Basophils # 0.1 (0-0.2) k/uL Sodium 130 L (137-145) mmol/L Potassium 3.8 (3.5-5.1) mmol/L Chloride 96 L (98-107) mmol/L Carbon Dioxide 26 (22-30) mmol/L Anion Gap 8 mmol/L BUN 13 (9-20) mg/dL Creatinine 0.60 L (0.66-1.25) mg/dL Est GFR (CKD-EPI)AfAm >90 (>60 ml/min/1.73 sqM) Est GFR (CKD-EPI)NonAf >90 (>60 ml/min/1.73 sqM) Glucose 99 (74-99) mg/dL Calcium 9.2 (8.4-10.2) mg/dL Total Bilirubin 0.7 (0.2-1.3) mg/dL AST 31 (17-59) U/L ALT 28 (4-49) U/L Alkaline Phosphatase 58 (38-126) U/L Troponin I (0.000-0.034) ng/mL C-Reactive Protein <0.5 (<1.0) mg/dL Total Protein 6.9 (6.3-8.2) g/dL Albumin 4.2 (3.5-5.0) g/dL Lipase 106 (23-300) U/L Urine Color Dark Yellow Urine Appearance Clear (Clear) Urine pH 6.0 (5.0-8.0) Ur Specific [place] 1.020 (1.001-1.035) Urine Protein Negative (Negative) Urine Glucose (UA) Negative (Negative) Urine Ketones Trace H (Negative) Urine Blood Negative (Negative) Urine Nitrite Negative (Negative) Urine Bilirubin Negative (Negative) Urine Urobilinogen <2.0 (<2.0) mg/dL Ur Leukocyte Esterase Negative (Negative) Urine Opiates Screen Not Detected (NotDetected) Ur Oxycodone Screen Not Detected (NotDetected) Urine Methadone Screen Not Detected (NotDetected) Ur Propoxyphene Screen Not Detected (NotDetected) Ur Barbiturates Screen Not Detected (NotDetected) U Tricyclic Antidepress Not Detected (NotDetected) Ur Phencyclidine Scrn Not Detected (NotDetected) Ur Amphetamines Screen Not Detected (NotDetected) U Methamphetamines Scrn Not Detected (NotDetected) U Benzodiazepines Scrn Not Detected (NotDetected) Urine Cocaine Screen Not Detected (NotDetected) U Marijuana (THC) Screen Not Detected (NotDetected) 02/04/23 Range/Units 13:52 WBC (3.8-10.6) k/uL RBC (4.30-5.90) m/uL Hgb (13.0-17.5) gm/dL Hct (39.0-53.0) % MCV (80.0-100.0) fL MCH (25.0-35.0) pg MCHC (31.0-37.0) g/dL RDW (11.5-15.5) % Plt Count (150-450) k/uL MPV Neutrophils % % Lymphocytes % % Monocytes % % Eosinophils % % Basophils % % Neutrophils # (1.3-7.7) k/uL Lymphocytes # (1.0-4.8) k/uL Monocytes # (0-1.0) k/uL Eosinophils # (0-0.7) k/uL Basophils # (0-0.2) k/uL Sodium (137-145) mmol/L Potassium (3.5-5.1) mmol/L Chloride (98-107) mmol/L Carbon Dioxide (22-30) mmol/L Anion Gap mmol/L BUN (9-20) mg/dL Creatinine (0.66-1.25) mg/dL Est GFR (CKD-EPI)AfAm (>60 ml/min/1.73 sqM) Est GFR (CKD-EPI)NonAf (>60 ml/min/1.73 sqM) Glucose (74-99) mg/dL Calcium (8.4-10.2) mg/dL Total Bilirubin (0.2-1.3) mg/dL AST (17-59) U/L ALT (4-49) U/L Alkaline Phosphatase (38-126) U/L Troponin I <0.012 (0.000-0.034) ng/mL C-Reactive Protein (<1.0) mg/dL Total Protein (6.3-8.2) g/dL Albumin (3.5-5.0) g/dL Lipase (23-300) U/L Urine Color Urine Appearance (Clear) Urine pH (5.0-8.0) Ur Specific [place] (1.001-1.035) Urine Protein (Negative) Urine Glucose (UA) (Negative) Urine Ketones (Negative) Urine Blood (Negative) Urine Nitrite (Negative) Urine Bilirubin (Negative) Urine Urobilinogen (<2.0) mg/dL Ur Leukocyte Esterase (Negative) Urine Opiates Screen (NotDetected) Ur Oxycodone Screen (NotDetected) Urine Methadone Screen (NotDetected) Ur Propoxyphene Screen (NotDetected) Ur Barbiturates Screen (NotDetected) U Tricyclic Antidepress (NotDetected) Ur Phencyclidine Scrn (NotDetected) Ur Amphetamines Screen (NotDetected) U Methamphetamines Scrn (NotDetected) U Benzodiazepines Scrn (NotDetected) Urine Cocaine Screen (NotDetected) U Marijuana (THC) Screen (NotDetected) Disposition Clinical Impression: Chronic back pain, Lumbar radiculopathy, chronic, Cervical radiculopathy at C6 Disposition: HOME SELF-CARE Condition: Stable Instructions (If sedation given, give patient instructions): Lumbar Radiculopathy (ED), Cervical Radiculopathy (ED), Chronic Back Pain (DC) Additional Instructions: Neck a follow-up appointment with your neurosurgeon. Call tomorrow morning for the appointment. Dr. Haq in [facility] for further evaluation. Alternatively, you can follow up at [facility] here in [facility] Follow-up with your regular physician as directed. Return to the ER immediately if any symptoms worsen, new symptoms arise, or any other problems develop. Prescriptions: methylPREDNISolone Dose Pack [Medrol Dose Pack] 4 mg PO DIRECTED #21 tab Is patient prescribed a controlled substance at d/c from ED?: No When asked, does pt state using other controlled substances?: No If prescribed controlled substance>3 days was MAPS reviewed?: No Referrals: Rober Gray DO [Doctor of Osteopathic Medicine] - 02/11/23 Time of Disposition: 15:03
[2023-02-04 14:05] VITALS: RESP 20
[2023-02-04 14:13] LABS: Basophils # (A) 0.1 k/uL (0-0.2); Basophils % (A) 1 %; Eosinophils # (A) 0.1 k/uL (0-0.7); Eosinophils % (A) 1 %; HCT 38.7 % (39.0-53.0); HGB 13.9 gm/dL (13.0-17.5); Lymphocytes # (A) 1.5 k/uL (1.0-4.8); Lymphocytes % (A) 17 %; MCH 33.5 pg (25.0-35.0); MCHC 35.9 g/dL (31.0-37.0); MCV 93.1 fL (80.0-100.0); Mean Platelet Volume 7.3; Monocytes # (A) 0.6 k/uL (0-1.0); Monocytes % (A) 7 %; Neutrophils # (A) 6.4 k/uL (1.3-7.7); Neutrophils % (A) 73 %; Platelet Count 262 k/uL (150-450); RBC 4.16 m/uL (4.30-5.90); RDW 11.9 % (11.5-15.5); WBC 8.8 k/uL (3.8-10.6)
[2023-02-04 14:16] LABS: Appearance,Urine Clear (Clear); Bilirubin,Urine Negative (Negative); Blood,Urine Negative (Negative); Color,Urine Dark Yellow; Glucose,Urine (UA) Negative (Negative); Ketones,Urine Trace (Negative); Leukocyte Esterase,Urine Negative (Negative); Nitrite,Urine Negative (Negative); Protein,Urine Negative (Negative); Urobilinogen,Urine <2.0 mg/dL (<2.0)
[2023-02-04 14:25] LABS: Amphetamine Screen,Urine Not Detected (NotDetected); Barbiturate Screen,Urine Not Detected (NotDetected); Benzodiazepines Screen,Urine Not Detected (NotDetected); Cocaine Screen,Urine Not Detected (NotDetected); Methadone Screen, Urine Not Detected (NotDetected); Opiate Screen,Urine Not Detected (NotDetected); Oxycodone Screen, Urine Not Detected (NotDetected); Phencyclidine Screen,Urine Not Detected (NotDetected); Tricyclic Antidepressant,Urine Not Detected (NotDetected); Urn Cannabinoid Scrn Not Detected (NotDetected)
[2023-02-04 14:27] LABS: ALT 28 U/L (4-49); AST 31 U/L (17-59); African American GFR (CKD) >90 (>60 ml/min/1.73 sqM); Albumin 4.2 g/dL (3.5-5.0); Alkaline Phosphatase 58 U/L (38-126); Anion Gap 8 mmol/L; Blood Urea Nitrogen 13 mg/dL (9-20); C Reactive Protein <0.5 mg/dL (<1.0); Calcium 9.2 mg/dL (8.4-10.2); Carbon Dioxide 26 mmol/L (22-30); Chloride 96 mmol/L (98-107); Glucose 99 mg/dL (74-99); Lipase 106 U/L (23-300); Non-African American GFR(CKD) >90 (>60 ml/min/1.73 sqM); Potassium 3.8 mmol/L (3.5-5.1); Sodium 130 mmol/L (137-145); Total Bilirubin 0.7 mg/dL (0.2-1.3); Total Protein 6.9 g/dL (6.3-8.2)
--- NOTE | 2023-02-04 14:38 | XR ---
Supine abdomen. DATE: 02/04/2023. COMPARISON: Lumbar spine radiograph on 06/28/2019. IMPRESSION: Bowel gas pattern is nonobstructive. There is a large calcification superimposed with the L3 right transverse process which is unchanged. This could represent a stone within the renal collecting system. No abnormal mass effect is seen. Spinal fusion changes are seen in the lower lumbar sacral region.
--- NOTE | 2023-02-04 14:42 | XR ---
5 view cervical spine. DATE: 02/04/2023. COMPARISON: None available. CLINICAL HISTORY: Back pain. FINDINGS: The vertebral bodies are well aligned without evidence of fracture, subluxation or dislocation. The vertebral body heights and disc spaces are maintained. There is mild multilevel degenerative facet and uncovertebral joint changes. The neural foramen appear widely patent. There is no prevertebral soft tissue swelling. IMPRESSION: Mild degenerative changes with no acute osseous abnormality.
[2023-02-04 15:42] VITALS: BP 139/89; PULSE 78; TEMP 97.7
== END 2023-02-04 15:46 | disposition home or self-care (01) ==
LOC: EC 12:49
DX: M54.16 Radiculopathy, lumbar region (principal); M54.12 Radiculopathy, cervical region; G89.29 Other chronic pain; I10 Essential (primary) hypertension; Z79.899 Other long term (current) drug therapy; Z88.0 Allergy status to penicillin
CPT/HCPCS: 36415; 72050; 74018; 80053; 80306; 81003; 83690; 84484; 85025; 86140; 93005; 99284

== ENCOUNTER 2023-08-05 12:04 | Emergency (ER) | payer OTHER ==
--- NOTE | 2023-08-05 12:52 | ED ---
Lower Extremity Injury HPI - General Chief Complaint: Extremity Injury, Lower Stated Complaint: Fall, L knee pain Time Seen by Provider: 08/05/23 12:22 Source: patient, RN notes reviewed Mode of arrival: ambulatory Limitations: no limitations - History of Present Illness Initial Comments: This is a 57-year-old male who presents to the emergency department for left knee pain and right hip pain after an injury. Patient states that 3 weeks ago he stepped into a hole and twisted his left knee. Since then, states that the symptoms have been getting worse. His left knee continues to swell, especially after any movement. He is also wearing a knee brace. He is able to ambulate, however he states that it is difficult. He is taking PO diclofenac with no relief in symptoms. Additionally, he reports increasing pain to the right hip. Also has pain in the right lower back. He has problems with his right SI joint resulting in a leg length discrepancy, which he states also makes the problem worse. - Related Data Home Medications Medication Instructions Recorded Confirmed Diclofenac Sodium [Voltaren] 75 mg PO DAILY 09/26/18 01/25/22 Lisinopril-Hctz 20-25 mg 1 tab PO BID 09/26/18 01/25/22 [Zestoretic 20-25] Previous Rx's Medication Instructions Recorded methylPREDNISolone Dose Pack 4 mg PO DIRECTED #21 tab 02/04/23 [Medrol Dose Pack] methocarbamoL [Robaxin-750] 1,500 mg PO TID PRN #30 tab 08/05/23 predniSONE 50 mg PO DAILY 5 Days #5 tab 08/05/23 Allergies Allergy/AdvReac Type Severity Reaction Status Date / Time Penicillins Allergy Unknown Verified 08/05/23 12:20 Childhood Review of Systems ROS Statement: Those systems with pertinent positive or pertinent negative responses have been documented in the HPI. ROS Other: All systems not noted in ROS Statement are negative. Past Medical History Past Medical History: Hypertension, Osteoarthritis (OA) Additional Past Medical History / Comment(s): arthritis in hips and back, bone spurs and bulging disks History of Any Multi-Drug Resistant Organisms: None Reported Past Surgical History: Appendectomy, Joint Replacement, Orthopedic Surgery, Tonsillectomy Additional Past Surgical History / Comment(s): arthroscopic donaldo knees, reconstruction rt ankle from injury, donaldo cataracts, TLHA 09/2018 Past Anesthesia/Blood Transfusion Reactions: No Reported Reaction Past Psychological History: No Psychological Hx Reported Smoking Status: Never smoker Past Alcohol Use History: Daily Past Drug Use History: None Reported - Past Family History Mother Family Medical History: No Reported History General Exam Limitations: no limitations General appearance: alert, in no apparent distress Head exam: Present: atraumatic, normocephalic, normal inspection Respiratory exam: Present: normal lung sounds bilaterally. Absent: respiratory distress, wheezes, rales, rhonchi, stridor Cardiovascular Exam: Present: regular rate, normal rhythm, normal heart sounds. Absent: systolic murmur, diastolic murmur, rubs, gallop, clicks Extremities exam: Present: other (No deformities to the left knee. No overlying tenderness. Full range of motion. Tenderness to palpation over the right hip. Full range of motion.) Neurological exam: Present: alert, oriented X3, CN II-XII intact Psychiatric exam: Present: normal affect, normal mood Skin exam: Present: warm, dry, intact, normal color. Absent: rash Course Vital Signs 08/05/23 08/05/23 12:16 14:45 Temperature 97.2 F L Pulse Rate 83 80 Respiratory 16 18 Rate Blood Pressure 178/80 164/84 O2 Sat by Pulse 99 98 Oximetry Medical Decision Making - Medical Decision Making This is a 57 year old male who presents to the emergency department for left knee pain and right hip pain after a fall. Was pt. sent in by a medical professional or institution? @ -No Did you speak to anyone other than the patient for history? @ -No Did you review nursing and triage notes? @ -Yes, and I agree, it is accurate with regards to the patient's symptoms. Were old charts reviewed? @ -No Differential Diagnosis? @ -Differential Musculoskeletal: Muscular strain, contusion, ligament sprain, fracture, arthritis, septic arthritis, bursitis, cellulitis, muscle spasm, nerve compression, DVT, arterial occlusion, herpes zoster, electrolyte abnormality, tumor.... This is not meant to be in all inclusive list EKG interpreted by me (3pts min.)? @ -Not obtained X-rays interpreted by me (1pt min.)? @ -X-ray of the left knee, right hip, and lumbar spine obtained. My interpretation of all imaging identifies no acute fractures. CT interpreted by me (1pt min.)? @ -Not obtained U/S interpreted by me (1pt. min.)? @ -Not obtained What testing was considered but not performed? (CT, X-rays, U/S, labs)? Why? @ -None What meds were considered but not given? Why? @ -None Did you discuss the management of the patient with other professionals? @ -No Did you reconcile home meds? @ -No Was smoking cessation discussed for >3mins.? @ -No Was critical care preformed (if so, how long)? @ -No Were there social determinants of health that impacted care today? How? (Homelessness, low income, unemployed, alcoholism, drug addiction, transportation, low edu. Level, literacy, decrease access to med. care, senior care, rehab)? @ -No Was there de-escalation of care discussed even if they declined? (Discuss DNR or withdrawal of care, Hospice)? @ -No What co-morbidities impacted this encounter? (DM, HTN, Smoking, COPD, CAD, Cancer, CVA, Hep., AIDS, mental health diagnosis, sleep apnea, morbid obesity)? @ -None Was patient admitted / discharged? @ -Discharged. X-ray of the left knee, right hip, and lumbar spine obtained revealing no acute process. He does have advanced degenerative changes in the right hip. Findings reviewed with the patient. Pain medication administered in the emergency department. Advised to follow up with orthopedics regarding the advanced degenerative changes in the right hip, as this will continue to worsen and cause more problems. He can also speak with them regarding the left knee and recurrent swelling. Rx for Robaxin and prednisone provided with dosing instructions reviewed. Patient discharged home in stable condition. Undiagnosed new problem with uncertain prognosis? @ -None Drug Therapy requiring intensive monitoring for toxicity (Heparin, Nitro, Insulin, Cardizem)? @ -None Were any procedures done? @ -None Diagnosis/symptom? @ -Left knee pain Acute, or Chronic, or Acute on Chronic? @ -Acute Uncomplicated (without systemic symptoms) or Complicated (systemic symptoms)? @ -Uncomplicated Side effects of treatment? @ -None Exacerbation, Progression, or Severe Exacerbation] @ -Not applicable Poses a threat to life or bodily function? @ -No Diagnosis/symptom? @ -DJD of right hip Acute, or Chronic, or Acute on Chronic? @ -Chronic Uncomplicated (without systemic symptoms) or Complicated (systemic symptoms)? @ -Uncomplicated Side effects of treatment? @ -None Exacerbation, Progression, or Severe Exacerbation] @ -Progression Poses a threat to life or bodily function? @ -Yes, this will likely impact his ability to ambulate. Return precautions reviewed in depth, the patient is instructed to return to the emergency department with any new, worsening, or concerning symptoms. Patient verbalized understanding. This case was discussed in detail with the attending ED physician, Dr. Lucero. Presentation, findings, and treatment plan discussed in detail as well. - Radiology Data Radiology results: report reviewed, image reviewed Disposition Clinical Impression: Left knee pain, Degenerative joint disease of right hip Disposition: HOME SELF-CARE Instructions (If sedation given, give patient instructions): Knee Sprain (ED), Osteoarthritis (ED), Knee Pain (ED) Additional Instructions: Return to the emergency department with any new, worsening, or concerning sy mptoms. Take the prednisone daily for 5 days. You can take the Robaxin as 1-2 tablets up to 3-4 times daily. Be aware that this may make you drowsy. Contact orthopedics for a follow up appointment, especially regarding the severe degenerative changes in your hip that will need to be addressed. Follow up with your primary care provider in 1-2 days. Prescriptions: predniSONE 50 mg PO DAILY 5 Days #5 tab methocarbamoL [Robaxin-750] 1,500 mg PO TID PRN #30 tab PRN Reason: Pain Is patient prescribed a controlled substance at d/c from ED?: No Referrals: None,Stated [Primary Care Provider] - 1-2 days Yung Peace DO [Doctor of Osteopathic Medicine] - 1-2 days Time of Disposition: 14:21
[2023-08-05] MEDS: KETOROLAC 15 MG/ML 1 ML VIAL IVP STA ×2 (12:58→14:39)
[2023-08-05] MEDS: ORPHENADRINE 30 MG/ML 2 ML VIAL IVP STA (12:59)
[2023-08-05] MEDS: DEXAMETHASONE SOD PHOSPHATE 10 MG/ML 1 ML VIAL IVP STA (13:00)
[2023-08-05 13:04] VITALS: TEMP 97.2
--- NOTE | 2023-08-05 13:53 | XR ---
EXAMINATION TYPE: XR Hip Complete RT DATE OF EXAM: 08/05/2023 COMPARISON: CT 01/25/2022 HISTORY: Pain TECHNIQUE: 2 view right hip FINDINGS: There is loss of the joint space. Femoral head deformity is present. Subchondral cyst forma tion is present. No acute fractures are evident. Findings a pair stable from the CT examination. IMPRESSION: 1. Advanced degenerative joint changes right hip, stable from CT 2021
--- NOTE | 2023-08-05 13:54 | XR ---
EXAMINATION TYPE: XR knee complete LT DATE OF EXAM: 08/05/2023 COMPARISON: None HISTORY: Pain trauma from fall TECHNIQUE: 3 view left knee FINDINGS: No acute fracture or dislocation is evident. Joint spaces are preserved. No joint effusion is evident. Follow up exams can be performed 7-10 days from acute trauma for continued pain. IMPRESSION: 1. No acute osseous abnormality left knee
--- NOTE | 2023-08-05 13:56 | XR ---
EXAMINATION TYPE: XR lumbar spine 2 or 3V DATE OF EXAM: 08/05/2023 COMPARISON: 06/28/2019 HISTORY: Pain TECHNIQUE: 3 view lumbar spine FINDINGS: Pedicle screws are present L4-S1. Scoliosis is present with convexity to the left. There is a calcification at the right renal pelvis. 1.4 cm renal pelvic stone may be present. Disc spaces are present L4-5 and L5-S1 vertebral body heights are preserved. Remaining disc heights a re preserved IMPRESSION: 1. Postsurgical changes lower lumbar spine. 2. Stable right renal pelvic stone. 3. Increasing scoliosis within the lumbar spine
[2023-08-05] MEDS: traMADol 50 MG STARTER PACK 3 TAB BTL PO STA (14:40)
[2023-08-05] MEDS: MORPHINE SULFATE 2 MG/ML SYRINGE IVP STA (14:41)
[2023-08-05 15:05] VITALS: BP 164/84; PULSE 80; RESP 18
== END 2023-08-05 14:46 | disposition home or self-care (01) ==
LOC: EC 12:04
DX: M16.11 Unilateral primary osteoarthritis, right hip (principal); M25.562 Pain in left knee; M54.50 Low back pain, unspecified; I10 Essential (primary) hypertension; Z88.0 Allergy status to penicillin; Z79.899 Other long term (current) drug therapy; W18.30XA Fall on same level, unspecified, initial encounter; X50.1XXA Overexertion from prolonged static or awkward postures, initial encounter
CPT/HCPCS: 72100; 73502; 73562; 99284; 96374; 96375 ×3; 96376; J1100; J2360; J2270; J1885

== ENCOUNTER 2024-04-24 10:34 | Emergency (ER) | payer OTHER ==
[2024-04-24 10:42] VITALS: RESP 18
--- NOTE | 2024-04-24 11:20 | ED ---
General Adult HPI - General Chief complaint: Extremity Injury, Upper Stated complaint: R arm swelling Time Seen by Provider: 04/24/24 10:48 Source: patient, RN notes reviewed Mode of arrival: ambulatory Limitations: no limitations - History of Present Illness Initial comments: 58-year-old male presents to the emergency department for evaluation of right elbow swelling. Patient notes that this has been present for the past 2 days. He reports very minimal pain. Admits to normal range of motion at the elbow. Denies any redness to the area. Denies fever, chills. Denies any injury to the area. - Related Data Home Medications Medication Instructions Recorded Confirmed Diclofenac Sodium [Voltaren] 75 mg PO DAILY 09/26/18 11/19/23 Lisinopril-Hctz 20-12.5 mg 1 tab PO DAILY 11/19/23 11/19/23 [Zestoretic 20-12.5] Benedict-3/Dha/Epa/Fish Oil [Fish Oil 1 cap PO DAILY 11/19/23 11/19/23 1,000 mg Softgel] traMADol HCL 50 mg PO TID PRN 11/19/23 11/19/23 Allergies Allergy/AdvReac Type Severity Reaction Status Date / Time Penicillins Allergy Unknown Verified 11/19/23 13:35 Childhood Review of Systems ROS Statement: Those systems with pertinent positive or pertinent negative responses have been documented in the HPI. ROS Other: All systems not noted in ROS Statement are negative. Past Medical History Past Medical History: Hypertension, Osteoarthritis (OA) Additional Past Medical History / Comment(s): arthritis in hips and back, bone spurs and bulging disks History of Any Multi-Drug Resistant Organisms: None Reported Past Surgical History: Appendectomy, Joint Replacement, Orthopedic Surgery, Tonsillectomy Additional Past Surgical History / Comment(s): arthroscopic donaldo knees, reconstruction rt ankle from injury, donaldo cataracts, TLHA 09/2018 Past Anesthesia/Blood Transfusion Reactions: No Reported Reaction Past Psychological History: No Psychological Hx Reported Smoking Status: Never smoker Past Alcohol Use History: Daily Past Drug Use History: None Reported - Past Family History Mother Family Medical History: No Reported History General Exam Limitations: no limitations General appearance: alert, in no apparent distress Head exam: Present: atraumatic, normocephalic, normal inspection Eye exam: Present: normal appearance, PERRL, EOMI. Absent: scleral icterus, conjunctival injection, periorbital swelling Extremities exam: Present: full ROM, normal capillary refill, joint swelling (Right elbow bursitis), other (Radial pulses 2+). Absent: tenderness Neurological exam: Present: alert, oriented X3 Psychiatric exam: Present: normal affect, normal mood Skin exam: Present: warm, dry, intact, normal color. Absent: rash Course Vital Signs 04/24/24 10:38 Temperature 97.4 F L Pulse Rate 94 Respiratory 18 Rate Blood Pressure 164/84 O2 Sat by Pulse 100 Oximetry Medical Decision Making - Medical Decision Making Was pt. sent in by a medical professional or institution (, PA, [employer], urgent care, hospital, or fpc...) When possible be specific @ -No Did you speak to anyone other than the patient for history (EMS, parent, family, police, friend...)? What history was obtained from this source @ -No Did you review nursing and triage notes (agree or disagree)? Why? @ -I reviewed and agree with nursing and triage notes Were old charts reviewed (outside hosp., previous admission, EMS record, old EKG, old radiological studies, urgent care reports/EKG's, fpc records)? Report findings @ -No old charts were reviewed Differential Diagnosis (chest pain, altered mental status, abdominal pain women, abdominal pain men, vaginal bleeding, weakness, fever, dyspnea, syncope, headache, dizziness, GI bleed, back pain, seizure, CVA, palpatations, mental health, musculoskeletal)? @ -Differential Musculoskeletal Muscular strain, contusion, ligament sprain, fracture, arthritis, septic arthritis, bursitis, cellulitis, muscle spasm, nerve compression, DVT, arterial occlusion, herpes zoster, electrolyte abnormality, tumor.... This is not meant to be in all inclusive list EKG interpreted by me (3pts min.). @ -None X-rays interpreted by me (1pt min.). @ -None done CT interpreted by me (1pt min.). @ -None done U/S interpreted by me (1pt. min.). @ -None done What testing was considered but not performed or refused? (CT, X-rays, U/S, labs)? Why? @ -X-ray of the elbow considered, patient has had no trauma What meds were considered but not given or refused? Why? @ -None Did you discuss the management of the patient with other professionals (professionals i.e. , PA, [employer], lab, RT, psych nurse, social sciences department chair, particleboard factory worker, teacher, diplomatic officer, caser)? Give summary @ -No Was smoking cessation discussed for >3mins.? @ -No Was critical care preformed (if so, how long)? @ -No Were there social determinants of health that impacted care today? How? (Homelessness, low income, unemployed, alcoholism, drug addiction, transportation, low edu. Level, literacy, decrease access to med. care, correction, rehab)? @ -No Was there de-escalation of care discussed even if they declined (Discuss DNR or withdrawal of care, Hospice)? DNR status @ -No What co-morbidities impacted this encounter? (DM, HTN, Smoking, COPD, CAD, Cancer, CVA, ARF, Chemo, Hep., AIDS, mental health diagnosis, sleep apnea, morbid obesity)? @ -None Was patient admitted / discharged? Hospital course, mention meds given and route, prescriptions, significant lab abnormalities, going to OR and other pertinent info. @ -Discharged. Patient presents to the emergency department for evaluation of right elbow swelling. Denies fever, chills, redness. Reports normal range of motion. No trauma to the area. X-ray of the elbow is considered but issue is atraumatic. Patient has right elbow bursitis with no concerning features at this time. Recommended compression. Advised follow-up to PCP. Patient understands agreeable with plan. Patient stable at time of discharge. Case discussed with Dr. Olmedo Undiagnosed new problem with uncertain prognosis? @ -No Drug Therapy requiring intensive monitoring for toxicity (Heparin, Nitro, Insulin, Cardizem)? @ -No Were any procedures done? @ -No Diagnosis/symptom? @ -Elbow bursitis Acute, or Chronic, or Acute on Chronic? @ -Acute Uncomplicated (without systemic symptoms) or Complicated (systemic symptoms)? @ -Uncomplicated Side effects of treatment? @ -No Exacerbation, Progression, or Severe Exacerbation? @ -No Poses a threat to life or bodily function? How? (Chest pain, [place], [place], pneumonia, PE, COPD, DKA, ARF, appy, cholecystitis, CVA, Diverticulitis, Homicidal, Suicidal, threat to staff... and all critical care pts) @ -No Disposition Clinical Impression: Bursitis of elbow Disposition: HOME SELF-CARE Condition: Stable Instructions (If sedation given, give patient instructions): Elbow Bursitis (ED) Additional Instructions: Please follow up with your primary care provider. Return to the emergency department for new or worsening symptoms. Is patient prescribed a controlled substance at d/c from ED?: No Referrals: Martinez Riggs MD [Primary Care Provider] - 1-2 days
[2024-04-24 11:45] VITALS: BP 158/82; PULSE 91; TEMP 97.7
== END 2024-04-24 11:45 | disposition home or self-care (01) ==
LOC: EC 10:34
DX: M70.31 Other bursitis of elbow, right elbow (principal); Z88.0 Allergy status to penicillin
CPT/HCPCS: 99283